=== PATIENT | male | born 1960 | race Caucasian/White ===

== ENCOUNTER 2018-12-16 14:27 | Emergency (ER) | payer BC ==
[2018-12-16 14:31] VITALS: BP 136/87; PULSE 65; TEMP 98; BMI 29.8
--- NOTE | 2018-12-16 14:32 | PDOC ---
Rapid Medical Evaluation Time Seen by Provider: 12/16/18 14:28 Medical Evaluation: Allergies Allergy/AdvReac Type Severity Reaction Status Date / Time No Known Allergies Allergy Verified 06/04/15 13:19 12/16/18 14:28 I have performed a brief in-person evaluation of this patient. The patient presents with a chief complaint of:R shoulder/neck pain Pertinent physical exam findings:Stable and well gloria, will defer rest of exam to ED provider I have ordered the following:nothing The patient will proceed to the ED for further evaluation. Discharge Disposition - Diagnosis Shoulder pain Qualifiers: Chronicity: acute Laterality: right Qualified Code(s): M25.511 - Pain in right shoulder - Referrals - Patient Instructions - Post Discharge Activity
[2018-12-16] MEDS ORDERED: KETOROLAC TROMETHAMINE 60 MG/2 ML VIAL IM ONE (15:04)
[2018-12-16] MEDS ORDERED: KETOROLAC TROMETHAMINE 60 MG/2 ML VIAL ONE (15:08)
--- NOTE | 2018-12-16 15:40 | PDOC ---
History of Present Illness - General Chief Complaint: Pain, Acute Stated Complaint: RT SHUOLDER PAIN Time Seen by Provider: 12/16/18 14:28 History Source: Patient Exam Limitations: Clinical Condition - History of Present Illness Initial Comments: 12/16/18 15:33 Patient with no significant past medical history present with complaint of sudden onset of right shoulder and right-sided neck pain after getting out of the shower yesterday. Patient also reported neck stiffness for same period. Denies trauma or injury to neck or shoulder. Reported increased pain with external rotation of neck. Timing/Duration: 24 hours Past History - Past Medical History Allergies/Adverse Reactions: Allergies Allergy/AdvReac Type Severity Reaction Status Date / Time No Known Allergies Allergy Verified 12/16/18 14:31 Home Medications: Ambulatory Orders Aspirin [ASA -] 81 mg PO DAILY 10/16/14 Brimonidine Tartrate [Alphagan P] 1 drop OD DAILY 10/16/14 Dorzolamide HCl/Timolol Maleat [Dorzolamide-Timolol Eye Drops] 1 drop OD DAILY 10/16/14 Hydrochlorothiazide [Hctz -] 25 mg PO DAILY 10/16/14 Lisinopril [Prinivil] 20 mg PO DAILY 10/16/14 Metoprolol Tartrate [Lopressor -] 25 mg PO DAILY 10/16/14 Moxifloxacin HCl [Vigamox 0.5% -] 1 drop OD DAILY 10/16/14 Prednisolone 1% Ophthalmic [Pred Forte 1% -] 0 ml OP ASDIR 10/16/14 Methocarbamol [Robaxin -] 500 mg PO BID PRN #14 tablet 12/16/18 Naproxen 500 mg PO BID PRN #20 tablet 12/16/18 COPD: No HTN: Yes Hypercholesterolemia: Yes - Immunization History Immunization Up to Date: Yes - Suicide/Smoking/Psychosocial Hx Smoking Status: No Smoking History: Never smoked Have you smoked in the past 12 months: No Number of Cigarettes Smoked Daily: 0 Hx Alcohol Use: No Drug/Substance Use Hx: No Substance Use Type: None Review of Systems - Review of Systems Able to Perform ROS?: Yes Is the patient limited Senegalese proficient: No Constitutional: No: Weakness HEENTM: No: Symptoms Reported, Tearing, Recent change in vision, Double Vision Respiratory: No: Symptoms reported Cardiac (ROS): No: Symptoms Reported ABD/GI: No: Symptoms Reported : Yes: See HPI Musculoskeletal: Yes: Symptoms Reported, See HPI, Joint Pain (right shoulder), Muscle Pain (right shoulder and neck), Neck Pain (right side of neck), Joint Stiffness (neck). No: Back Pain, Joint Swelling, Muscle Weakness Neurological: No: Numbness, Paresthesia, Tingling All Other Systems: Reviewed and Negative *Physical Exam - Vital Signs Last Vital Signs Temp Pulse Resp BP Pulse Ox 98.0 F 65 18 136/87 98 12/16/18 14:28 12/16/18 14:28 12/16/18 14:28 12/16/18 14:28 12/16/18 14:28 - Physical Exam Comments: 12/16/18 15:35 GENERAL: Well developed, well nourished. Awake and alert. No acute distress. CARDIOVASCULAR: Regular rate and rhythm. No murmurs, rubs, or gallops. PULMONARY: No evidence of respiratory distress. Lungs clear to auscultation bilaterally. No wheezing, rales or rhonchi. ABDOMINAL: Soft. Non-tender. Non-distended. No rebound or guarding. No organomegaly. Normoactive bowel sounds MUSCULOSKELETAL : Moderate tenderness over AC joint and posterior aspect of right shoulder. Moderate tenderness to by paracervical muscle C2-C5. Decreased range of motion of neck due to pain. No bony deformities . 5 out of 5 muscle strength to right shoulder. SKIN: Warm and dry. Normal capillary refill. No rashes. No jaundice. NEUROLOGICAL: Alert, awake, appropriate. No motor deficits in the lower extremities. Gait is normal without ataxia. PSYCHIATRIC: Cooperative. Good eye contact. Appropriate mood and affect. General Appearance: Yes: Nourished, Appropriately Dressed, Mild Distress Moderate Sedation - Procedure Monitoring Vital Signs: Procedure Monitoring Vital Signs Temperature 98.0 F 12/16/18 14:28 Pulse Rate 65 12/16/18 14:28 Respiratory Rate 18 12/16/18 14:28 Blood Pressure 136/87 12/16/18 14:28 O2 Sat by Pulse Oximetry (%) 98 12/16/18 14:28 ED Treatment Course - RADIOLOGY Radiology Studies Ordered: Category Date Time Status SHOULDER-RIGHT [RAD] Stat Radiology 12/16/18 15:04 Ordered SPINE-CERVICAL [RAD] Stat Radiology 12/16/18 15:04 Ordered - Medications Given in the ED: ED Medications Discontinued Medications Generic Name Dose Route Start Last Admin Trade Name Freq PRN Reason Stop Dose Admin Ketorolac Tromethamine 60 mg 12/16/18 15:04 12/16/18 15:11 Toradol Injection - IM 12/16/18 15:05 60 mg ONCE ONE Administration Medical Decision Making - Medical Decision Making 12/16/18 15:36 Patient with no significant past medical history present with complaint of 24- hour history of right shoulder and right-sided neck pain without trauma or injury. Symptoms likely shoulder strain and neck strain with neck spasm. Toradol 60 milligrams IM ordered for pain. X-ray of cervical spine and right shoulder ordered to rule out an acute pathology. Patient be discharged home on naproxen twice a day as needed for pain and Robaxin for muscle spasm with orthopedist follow-up if negative x-ray. *DC/Admit/Observation/Transfer Diagnosis at time of Disposition: Shoulder pain Qualifiers: Chronicity: acute Laterality: right Qualified Code(s): M25.511 - Pain in right shoulder Neck muscle strain Qualifiers: Encounter type: initial encounter Qualified Code(s): S16.1XXA - Strain of muscle, fascia and tendon at neck level, initial encounter - Discharge Dispostion Disposition: HOME Condition at time of disposition: Stable Decision to Admit order: No - Prescriptions Prescriptions: Methocarbamol [Robaxin -] 500 mg PO BID PRN #14 tablet PRN Reason: neck and shoulder spasm Naproxen 500 mg PO BID PRN #20 tablet PRN Reason: pain - Referrals Referrals: Duncan Shelton DO [Staff Physician] - - Patient Instructions Printed Discharge Instructions: Shoulder Sprain, DI for Shoulder Pain Additional Instructions: X-rays of shoulder was normal. 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 Take medications as prescribed as needed for pain. apply heat therapy 2-3 times/ day as needed for pain. Follow-up with referred orthopedics if symptoms persist more than 3 days - Post Discharge Activity
== END 2018-12-16 15:53 | disposition home or self-care (01) ==
LOC: JERFT 14:27
PROC: 3E0233Z Introduction of Anti-inflammatory into Muscle, Percutaneous Approach (ICD-10-PCS; principal; 2018-12-16)
DX: S16.1XXA Strain of muscle, fascia and tendon at neck level, initial encounter (principal); M25.511 Pain in right shoulder; M62.838 Other muscle spasm; X58.XXXA Exposure to other specified factors, initial encounter; Y93.E1 Activity, personal bathing and showering; Y92.012 Bathroom of single-family (private) house as the place of occurrence of the external cause; I10 Essential (primary) hypertension; E78.00 Pure hypercholesterolemia, unspecified
CPT/HCPCS: 72050-TC-FY; 73030-TC-RT-FY; 99281-25

== ENCOUNTER 2020-05-16 11:28 | Emergency (ER) | payer BC ==
--- NOTE | 2020-05-16 11:43 | PDOC ---
History of Present Illness - General Stated Complaint: CVA/TIA Time Seen by Provider: 05/16/20 11:42 - History of Present Illness Initial Comments: Joesph Acosta is a 60 y/o male with PMH significant for HTN and HLD presenting today with tingling in the left hand and left foot at 10am today. Reports that he woke up at 6am and was making breakfast when he felt lightheaded and felt the tingling in the left hand/foot. Lasted around 15min and resolved on its own. Pt took his BP after this and was in the 170s. Took his metoprolol and his statin right after. Subsequently called EMS. Denies chest pain/shortness of breath. Denies weakness. Denies headache. Denies LOC. Denies vertigo. No fever/chills. No back pain/abdominal pain. No leg swelling. Past History - Medical History Allergies/Adverse Reactions: Allergies Allergy/AdvReac Type Severity Reaction Status Date / Time No Known Allergies Allergy Verified 12/16/18 14:31 Home Medications: Ambulatory Orders Aspirin [ASA -] 81 mg PO DAILY 10/16/14 Brimonidine Tartrate [Alphagan P] 1 drop OD DAILY 10/16/14 Dorzolamide HCl/Timolol Maleat [Dorzolamide-Timolol Eye Drops] 1 drop OD DAILY 10/16/14 Hydrochlorothiazide [Hctz -] 25 mg PO DAILY 10/16/14 Lisinopril [Prinivil] 20 mg PO DAILY 10/16/14 Metoprolol Tartrate [Lopressor -] 25 mg PO DAILY 10/16/14 Moxifloxacin HCl [Vigamox 0.5% -] 1 drop OD DAILY 10/16/14 Prednisolone 1% Ophthalmic [Pred Forte 1% -] 0 ml OP ASDIR 10/16/14 Methocarbamol [Robaxin -] 500 mg PO BID PRN #14 tablet 12/16/18 Naproxen 500 mg PO BID PRN #20 tablet 12/16/18 Rosuvastatin [Crestor -] 20 mg PO DAILY 05/16/20 Sertraline HCl [Zoloft] 100 mg PO BID 05/16/20 COPD: No HTN: Yes Hypercholesterolemia: Yes - Immunization History Immunization Up to Date: Yes - Psycho-Social/Smoking History Smoking Status: No Smoking History: Never smoked Have you smoked in the past 12 months: No Number of Cigarettes Smoked Daily: 0 Review of Systems - Review of Systems Comments:: GENERAL/CONSTITUTIONAL: No fever or chills. No weakness._ HEAD, EYES, EARS, NOSE AND THROAT: No change in vision. No change in hearing. No sore throat._ CARDIOVASCULAR: No chest pain or shortness of breath_ RESPIRATORY: Denies cough, hemoptysis_ GASTROINTESTINAL: No nausea, vomiting, diarrhea or constipation._ GENITOURINARY: No dysuria, frequency, or change in urination._ MUSCULOSKELETAL: No joint or muscle swelling or pain. No neck or back pain._ SKIN: No rash_ NEUROLOGIC: Reports lightheadedness. No headache, vertigo, loss of consciousness, or change in strength/sensation. Reports tingling in the left hand and left foot (resolved). ENDOCRINE: No increased thirst. No abnormal weight change_ HEMATOLOGIC/LYMPHATIC: No anemia, easy bleeding, or history of blood clots._ ALLERGIC/IMMUNOLOGIC: No hives or skin allergy._ *Physical Exam - Physical Exam GENERAL: Awake, alert, and oriented to person/place/time, in no acute distress_ HEAD: No signs of trauma, normocephalic, atraumatic _ EYES: Artificial lens right eye, EOMI, sclera anicteric, conjunctiva clear_ ENT: Hearing grossly normal, nares patent, oropharynx clear without exudates. No uvular deviation. Moist mucosa_ NECK: Normal ROM, supple, no lymphadenopathy, JVD, or masses_ LUNGS: No distress, speaks in full sentences, clear to auscultation bilaterally _ HEART: Regular rate and rhythm, normal S1 and S2, no murmurs appreciated, peripheral pulses normal and equal bilaterally._ ABDOMEN: Soft, nontender, normoactive bowel sounds. No guarding, no rebound. No masses_ EXTREMITIES: Normal inspection, Normal range of motion, no edema. No clubbing or cyanosis_ NEUROLOGICAL: CN II-XII tested and intact. Sensation intact to sharp/dull differentiation in all extremities. Motor: Normal tone and bulk. No abnormal movements appreciated. No pronator drift. Strength tested and 5/5 in bilateral wrist flexion/extension, elbow flexion/extension, shoulder abduction, straight leg raise, knee flexion/extension, ankle dorsiflexion/plantarflexion. Patient ambulates with a steady gait. Coordination: Finger to nose and heel to chavez testing intact bilaterally. SKIN: Warm, Dry, normal turgor, no rashes or lesions noted_ NIH Stroke Scale - Last Known Well Date/Time & Onset Date Last Known Well: 05/16/20 Time Last Known Well: 10:00 - Initial Evaluation Level of consciousness: Alert Ask patient the month and their age: Answers both correctly Ask patient to open & close eyes; make fist and let go: Obeys both correctly Best gaze (horizontal eye movement): Normal Visual field testing: No visual field loss Facial paresis (Show teeth/raise eyebrows/close eyes tight): Normal symmetrical movement Motor Function: Left Arm: Normal Motor Function: Right Arm: Normal (extends arm 90 (or 45) degrees for 10 seconds without drift Motor Function: Left Leg: Normal (extends leg 30 degrees for 5 seconds without drift) Motor Function: Right Leg: Normal (extends leg 30 degrees for 5 seconds without drift) Limb Ataxia: No ataxia Sensory(Use pinprick test arms,legs,trunk,face/side to side): Normal Best language (Describe picture, name items, read sentences): No Aphasia Dysarthria (read several words): Normal articulation Extinction and Inattention: No abnormality - Total Score NIH Stroke Scale Score: 0 tPA Exclusion Checklist 0-3hr - Time Elapsed Date last known well: 05/16/20 Time last known well: 10:00 Elaspsed time: Day(s) and 10 Hour(s) and 7 Minutes - Thrombolytic Therapy Candidate Is the patient eligible for Thrombolytic Therapy?: Yes - Exclusion Criteria 0-3hr SBP greater than 185 or DBP greater than 110mmHg despite tx: No Recent IC/spinal surgery,head trauma or stroke w/in last 3mo: No Hx of previous IC hemorrhage, IC neoplasm, AVM or aneurysm: No Active internal bleeding: No Blding diathesis(low plt ct, inc PTT,INR>1.7 or use of NOAC): No Symptoms suggest subarachnoid hemorrhage: No CT demonstrates multilobar infarct(>1/3 cerebral hemiphere): No Arterial puncture at noncompressible site in previous 7 days: No Blood glucose concentration less than 50mg/dL (2.7mmol/L): No - Relative Exclusion Criteria 0-3h Care team unable to determine eligibility: No IV/IA thrombolysis/thrombectomy @ another hosp prior arrival: No Life expectancy <1yr/severe co-morbid illness/[employer] on admit: No : No Patient/family refused: No Stroke severity too mild (non-disabling): Yes Recent acute NV (w/in previous 3 months): No Seizure at onset with postictal residual neuro impairments: No Major surgery or serious trauma w/in previous 14 days: No Recent GI or hemorrhage (w/in previous 21 days): No - Ineligibility reason(s) Reasons No tPA given: See reason(s) noted above (symptoms resolved) Critical Care Time/MDM Note - Medical Decision Making Note: 05/16/20 11:45 60M hx of HTN HLD presenting today with tingling in the left hand and left foot at 10am this morning lasting for around 15 min before resolution. No focal neuro findings on exam in the ED. Code stroke activated as the pt is within the 4 hour window. -CT head stroke -labs -coags -urine -lipids 05/16/20 11:47 Age ? 60 years > 1 = Yes BP ? 140/90 mmHg > 1 = Yes Clinical features of the TIA > 0 = Other symptoms Duration of symptoms > 1 = 10-59 minutes History of diabetes > 0 = No ABCD Score: 3 05/16/20 11:50 CT head negative for acute intracranial pathology. 05/16/20 12:43 EKG shows 67 bpm, NSR, no axis deviation, CA 170, QTc 412, no ST elevation/depression. No significant interval change compared to EKG in 2015. 05/16/20 13:47 The patient has requested to leave the ED against medical advice. The patient reason(s) for leaving include, but are not limited to, the following: does not want to stay inpatient and feels that his symptoms have resolved. I believe this patient is of sound mind and competent to refuse medical care. The patient is responding and asking questions appropriately. The patient is oriented to person, place and time. The patient is not psychotic, delusional, suicidal, homicidal or hallucinating. The patient demonstrates a normal mental capacity to make decisions regarding their healthcare. The patient is clinically sober and does not appear to be under the influence of any illicit drugs at this time. The patient has been advised of the risks, in layman terms, of leaving AMA which include, but are not limited to , coma, permanent disability, loss of cur rent lifestyle, delay in diagnosis. Alternatives have been offered - the patient remains steadfast in their wish to leave. The patient has been advised that should they change their mind they are welcome to return to this hospital, or any other, at any time. The patient understands that in no way does an AMA discharge mean that I do not want them to have the best medical care available. To this end, I have provided appropriate prescriptions, referrals, and discharge instructions. The patient did sign AMA paperwork. The above discussion was witnessed by another member of staff. Discharge - Discharge Information Problems reviewed: Yes Clinical Impression/Diagnosis: Transient ischemic attack Condition: Unchanged/Unknown Disposition: AGAINST MEDICAL ADVICE - Admission No - Follow up/Referral Referrals: Neil Blankenship MD [Primary Care Provider] - Alton Foster MD [Staff Physician] - - Patient Discharge Instructions Patient Printed Discharge Instructions: DI for Transient Ischemic Attack Additional Instructions: Please make a follow up appointment with your primary care doctor. If you experience any new, worsening, or concerning symptoms, including numbness, tingling, vision changes, slurred speech, weakness, or any other concerns, please return to the emergency department. - Post Discharge Activity
--- NOTE | 2020-05-16 11:44 | PDOC ---
Attending Attestation - Resident Resident Name: ConnorJames - ED Attending Attestation I have performed the following: I have examined & evaluated the patient, The case was reviewed & discussed with the resident, I agree w/resident's findings & plan, Exceptions are as noted - HPI HPI: 05/16/20 12:03 60y M hx of htn, hl, presents with about 15 min of L leg and hand tingling and was feeling lightheaded around 9:45am when he was walking to the family room. He endorsed feeling alittle out of breath and maybe some chest pressure. Patient states that after this happened he took his vital signs notice his blood pressure was a little bit elevated, he took baby aspirin and metoprolol and and the symptoms resolved. Upon arrival of EMS the patient's symptoms had resolved and per EMS had a normal neurologic exam. The patient denies any associated symptoms including headache, vision changes, dysatrhia, focal weakness/numbness, neck pain, abdominal pain, n/v, diaphoresis, worthy, back pain. No recent fever, chills, cough, diarrhea, melena, BPR, dysuria. Pt has never had these sypmtoms in the past. Upon arrival, code morris was activated due to his complaint of lateralizing neuro sypmtoms. - Physicial Exam PE: 05/16/20 12:37 GENERAL: The patient is awake, alert, and fully oriented, Nontoxic - in no acute distress. HEAD: Normocephalic, atraumatic. EYES: extraocular movements intact, sclera anicteric, conjunctiva clear. ENT: Normal voice, Moist mucous membranes. NECK: Normal range of motion, supple LUNGS: Breath sounds equal, clear to auscultation bilaterally. No wheezes, no rhonchi, no rales. HEART: Regular rate and rhythm, normal S1 and S2 without murmur, rub or gallop. ABDOMEN: Soft, nontender, No guarding, no rebound. No CVA tenderness EXTREMITIES: Normal range of motion, no edema. NEUROLOGICAL: No facial assymetry, Normal speech, moving all 4 extremities spontnaeously and symmetrically, normal finger to nose, normal rapid laternating movements, normal sensation in face/arms/legs. PSYCH: Normal mood, normal affect. SKIN: Warm, Dry, normal turgor, - Medical Decision Making 05/16/20 12:38 ddx for pts sx includes possible tia, anemia, metabolic derangement, acs, arrthmia will ck ct head, labs, ekg pt placed on leak inspector willr easess, - anticipate observation./admission for further evaluation 05/16/20 13:22 pt lab resuilts reviewed pt states she would like to leave due to concern for COVID patients, pt was reassured that there are minimal cases currently and all measures will be taken to minimize risks, however pt still wants to leave will sign pt out AMA discussed risks of leaving prior to complete workup/evaluation by consults pt states he understands the risks of delayed/missed dx Heart Score/ECG Review - ECG Impressions Comment:: 05/16/20 13:32 Twelve-lead EKG was performed and reviewed by me. There is normal sinus rhythm with a normal rate. rate of 67 The axis is normal. The intervals are normal. There is normal R wave progression There are no ST or T wave abnormalities. Impression: Normal twelve-lead EKG Discharge - Discharge Information Problems reviewed: Yes Clinical Impression/Diagnosis: Transient ischemic attack Condition: Unchanged/Unknown Disposition: AGAINST MEDICAL ADVICE - Follow up/Referral Referrals: Neil Blankenship MD [Primary Care Provider] - Alton Foster MD [Staff Physician] - - Patient Discharge Instructions Patient Printed Discharge Instructions: DI for Transient Ischemic Attack Additional Instructions: Please make a follow up appointment with your primary care doctor. If you experience any new, worsening, or concerning symptoms, including numbness, tingling, vision changes, slurred speech, weakness, or any other concerns, please return to the emergency department. - Post Discharge Activity
[2020-05-16] MEDS ORDERED: SODIUM CHLORIDE 1,000 ML IV SCH (11:45)
[2020-05-16 12:02] VITALS: BMI 32.5
[2020-05-16 12:12] LABS: BASO % 0.3 % (0-2.0); EOS % 0.1 % (0-4.5); HEMATOCRIT 36.8 % (35.4-49); HEMOGLOBIN 12.5 GM/dL (11.7-16.9); LYMPH % 25.9 % (8-40); MCH 31.1 pg (25.7-33.7); MCHC 34.1 g/dl (32.0-35.9); MEAN CELL VOLUME 91.3 fl (80-96); MONO % 9.6 % (3.8-10.2); NEUT % 64.1 % (42.8-82.8); PLATELET COUNT 218 K/MM3 (134-434); RBC 4.03 M/mm3 (4.00-5.60); RDW 13.4 % (11.9-15.9); WHITE BLOOD COUNT 6.8 K/mm3 (4.0-10.0)
[2020-05-16 12:20] LABS: INR 1.05 (0.83-1.09); PROTHROMBIN TIME (PATIENT) 12.4 SEC (9.7-13.0)
[2020-05-16 12:46] LABS: CHOLESTEROL 146 mg/dL (50-200); HDL CHOLESTEROL 35 mg/dL (40-60); LDL CHOLESTEROL (ONLY SJRH) 89 mg/dL (5-100); TRIGLYCERIDES 156 mg/dL (0-150)
[2020-05-16 12:49] LABS: ALBUMIN 3.7 g/dl (3.4-5.0); ALK PHOS 65 U/L (45-117); ANION GAP 8 MMOL/L (8-16); BILIRUBIN,TOTAL 0.4 mg/dL (0.2-1); BLOOD UREA NITROGEN 17.5 mg/dL (7-18); CALCIUM 8.9 mg/dL (8.5-10.1); CHLORIDE 100 mmol/L (98-107); CO2 25 mmol/L (21-32); CREATININE 1.4 mg/dL (0.55-1.3); GLUCOSE,RANDOM 109 mg/dL (74-106); SGOT/AST 28 U/L (15-37); SGPT/ALT 56 U/L (13-61); SODIUM 132 mmol/L (136-145); TOT PROT 7.3 g/dl (6.4-8.2)
[2020-05-16 13:46] VITALS: BP 113/78; PULSE 64; TEMP 98.3
--- NOTE | 2020-05-17 09:22 | EKG ---
Test Reason : Blood Pressure : / mmHG Vent. Rate : 067 BPM Atrial Rate : 067 BPM P-R Int : 170 ms QRS Dur : 078 ms QT Int : 390 ms P-R-T Axes : 031 001 027 degrees QTc Int : 412 ms NORMAL SINUS RHYTHM NORMAL ECG WHEN COMPARED WITH ECG OF 04-JUN-2015 13:46, NO SIGNIFICANT CHANGE WAS FOUND Confirmed by MD RUBEN, GEORGETTE ([id number]) on 05/17/2020 9:21:57 AM Referred By: Confirmed By:GEORGETTE MIRANDA MD
== END 2020-05-16 13:40 | disposition left against medical advice (07) ==
LOC: JER 11:28
DX: G45.9 Transient cerebral ischemic attack, unspecified (principal)
CPT/HCPCS: 36415; 70450-TC; 71045-TC-FY; 80053; 80061; 82550; 83721; 84484; 85025; 85610; 85730; 86850; 86900; 86901; 93005; 93010; 99285-25

== ENCOUNTER 2020-09-04 12:51 | Emergency (ER) | payer BC ==
[2020-09-04 13:34] VITALS: BP 115/76; PULSE 74; TEMP 98.1; BMI 30.7
== END 2020-09-04 13:39 | disposition left against medical advice (07) ==
LOC: JER 12:51
DX: R42 Dizziness and giddiness (principal)
CPT/HCPCS: 99283-25

== ENCOUNTER 2021-04-18 02:06 | Emergency (ER) | payer BC ==
[2021-04-18 02:18] VITALS: BP 116/83; PULSE 63; TEMP 98; BMI 30.7
[2021-04-18] MEDS ORDERED: KETOROLAC TROMETHAMINE 60 MG/2 ML VIAL IM ONE (02:38)
[2021-04-18] MEDS ORDERED: KETOROLAC TROMETHAMINE 60 MG/2 ML VIAL ONE (02:39)
== END 2021-04-18 02:45 | disposition home or self-care (01) ==
LOC: FER 02:06
PROC: 3E0233Z Introduction of Anti-inflammatory into Muscle, Percutaneous Approach (ICD-10-PCS; principal; 2021-04-18)
DX: R51.9 Headache, unspecified (principal)
CPT/HCPCS: 70450-TC; 99284-25

== ENCOUNTER 2021-06-15 12:25 | Emergency (ER) | payer BC ==
[2021-06-15 12:41] VITALS: BMI 29.0
[2021-06-15] MEDS ORDERED: CASIRIVIMAB/IMDEVIMAB 10 ML in SODIUM CHLORIDE 100 ML IVPB ONE (13:26)
[2021-06-15 14:10] LABS: BASO % 0.5 % (0-2.0); EOS % 0.2 % (0-4.5); HEMOGLOBIN 13.2 GM/dL (11.7-16.9); LYMPH % 34.2 % (8-40); MCH 31.3 pg (25.7-33.7); MCHC 34.8 g/dl (32.0-35.9); MEAN CELL VOLUME 90.1 fl (80-96); MEAN PLT VOLUME 8.8 fl (7.5-11.1); MONO % 10.9 % (3.8-10.2); NEUT % 54.2 % (42.8-82.8); PLATELET COUNT 189 10^3/uL (134-434); RBC 4.22 M/mm3 (4.00-5.60); RDW 13.6 % (11.9-15.9)
[2021-06-15 14:38] LABS: BLOOD UREA NITROGEN 22.3 mg/dL (7-18); CALCIUM 8.5 mg/dL (8.5-10.1)
[2021-06-15 14:43] LABS: CREATININE 1.2 mg/dL (0.55-1.3)
[2021-06-15 15:04] VITALS: TEMP 98.4
[2021-06-15 16:52] VITALS: BP 131/78; PULSE 67
== END 2021-06-15 16:52 | disposition home or self-care (01) ==
LOC: JER 12:25
DX: U07.1 COVID-19 (principal)
CPT/HCPCS: 36415; 80048; 85025; 99284-25; M0240; Q0240

== ENCOUNTER 2021-08-03 11:33 | Emergency (ER) | payer BC ==
[2021-08-03 12:12] VITALS: BMI 30.7
[2021-08-03 14:53] LABS: BASO % 0.7 % (0-2.0); EOS % 0.3 % (0-4.5); HEMATOCRIT 39.2 % (35.4-49); HEMOGLOBIN 13.6 GM/dL (11.7-16.9); LYMPH % 30.3 % (8-40); MCH 31.9 pg (25.7-33.7); MCHC 34.6 g/dl (32.0-35.9); MEAN CELL VOLUME 92.1 fl (80-96); MEAN PLT VOLUME 9.6 fl (7.5-11.1); MONO % 8.5 % (3.8-10.2); NEUT % 60.2 % (42.8-82.8); PLATELET COUNT 234 10^3/uL (134-434); RBC 4.26 M/mm3 (4.00-5.60); RDW 13.5 % (11.9-15.9); WHITE BLOOD COUNT 9.8 K/mm3 (4.0-10.0)
[2021-08-03 15:14] LABS: CHLORIDE 103 mmol/L (98-107); SODIUM 136 mmol/L (136-145)
[2021-08-03 15:16] LABS: ALBUMIN 3.7 g/dl (3.4-5.0); ANION GAP 11 MMOL/L (8-16); BLOOD UREA NITROGEN 18.8 mg/dL (7-18); CALCIUM 8.6 mg/dL (8.5-10.1); CO2 22 mmol/L (21-32); GLUCOSE,RANDOM 87 mg/dL (74-106)
[2021-08-03 15:19] LABS: CREATININE 1.2 mg/dL (0.55-1.3); SGOT/AST 24 U/L (15-37); SGPT/ALT 40 U/L (13-61)
[2021-08-03 15:21] LABS: BILIRUBIN,TOTAL 0.5 mg/dL (0.2-1); TOT PROT 7.7 g/dl (6.4-8.2)
[2021-08-03 15:22] LABS: ALK PHOS 72 U/L (45-117)
[2021-08-03 16:35] VITALS: BP 124/87; TEMP 98.7
[2021-08-03 18:14] VITALS: PULSE 75
== END 2021-08-03 17:45 | disposition home or self-care (01) ==
LOC: JER 11:33
DX: R41.0 Disorientation, unspecified (principal); F41.9 Anxiety disorder, unspecified
CPT/HCPCS: 36415; 70450-TC; 80053; 82550; 84484; 85025; 93005; 93010; 99285-25

== ENCOUNTER 2021-12-29 11:41 | Emergency (ER) | payer BC ==
[2021-12-29 11:47] VITALS: BP 128/75; PULSE 77; TEMP 100.6; BMI 30.7
[2021-12-29] MEDS ORDERED: ACETAMINOPHEN 325 MG TABLET (FP) PO ONE (12:28)
[2021-12-29] MEDS ORDERED: ACETAMINOPHEN 325 MG TABLET (FP) ONE (13:04)
[2021-12-29 13:08] LABS: EPI CELLS 2 /uL (0-25.1); HYALINE CASTS 1 /uL (0-3.1); URINE APPEARANCE CLEAR; URINE BACTERIA 1 /uL (0-1359); URINE BILIRUBIN NEGATIVE (NEGATIVE); URINE COLOR YELLOW; URINE GLUCOSE (UA) NEGATIVE (NEGATIVE); URINE KETONE NEGATIVE (NEGATIVE); URINE LEUK ESTERASE NEGATIVE (NEGATIVE); URINE NITRITE NEGATIVE (NEGATIVE); URINE PROTEIN 1+ (NEGATIVE); URINE RBC 28 /uL (0-23.9); URINE UROBILINOGEN 0.2 mg/dL (0.2-1.0); URINE WBC 8 /uL (0-25.8)
[2021-12-29 14:06] LABS: HEMATOCRIT 38.1 % (35.4-49); HEMOGLOBIN 12.8 GM/dL (11.7-16.9); MCH 30.7 pg (25.7-33.7); MCHC 33.7 g/dl (32.0-35.9); MEAN CELL VOLUME 91.2 fl (80-96); MEAN PLT VOLUME 9.8 fl (7.5-11.1); PLATELET COUNT 201 10^3/uL (134-434); RBC 4.18 M/mm3 (4.00-5.60); RDW 13.3 % (11.9-15.9); WHITE BLOOD COUNT 11.9 K/mm3 (4.0-10.0)
[2021-12-29 14:24] LABS: CALCIUM 8.9 mg/dL (8.5-10.1)
[2021-12-29 14:25] LABS: BLOOD UREA NITROGEN 25.5 mg/dL (7-18)
[2021-12-29 14:27] LABS: CREATININE 1.4 mg/dL (0.55-1.3)
[2021-12-29 14:29] LABS: BILIRUBIN,TOTAL 0.7 mg/dL (0.2-1); TOT PROT 7.9 g/dl (6.4-8.2)
[2021-12-29] MEDS ORDERED: IBUPROFEN 400 MG TABLET (FP) PO ONE ×2 (15:58→16:04)
[2021-12-29] MEDS ORDERED: SODIUM CHLORIDE 1,000 ML IV STA (15:58)
[2021-12-29] MEDS ORDERED: metroNIDAZOLE 250 MG TABLET PO ONE (16:53)
[2021-12-29] MEDS ORDERED: metroNIDAZOLE 250 MG TABLET ONE (17:26)
== END 2021-12-29 17:38 | disposition home or self-care (01) ==
LOC: JER 11:41
PROC: 3E0337Z Introduction of Electrolytic and Water Balance Substance into Peripheral Vein, Percutaneous Approach (ICD-10-PCS; principal; 2021-12-29)
DX: K57.32 Diverticulitis of large intestine without perforation or abscess without bleeding (principal)
CPT/HCPCS: 36415; 74177-TC; 80053; 81003; 85027; 87040; 87086; 99285-25; Q9967

== ENCOUNTER 2022-05-08 19:10 | Emergency (ER) | payer BC ==
[2022-05-08] MEDS ORDERED: KETOROLAC TROMETHAMINE 60 MG/2 ML VIAL IM ONE (19:30)
[2022-05-08] MEDS ORDERED: KETOROLAC TROMETHAMINE 60 MG/2 ML VIAL ONE (19:30)
[2022-05-08 19:33] VITALS: BP 133/81; PULSE 84; TEMP 99.8; BMI 29.0
== END 2022-05-08 19:44 | disposition home or self-care (01) ==
LOC: FER 19:10
PROC: 3E023GC Introduction of Other Therapeutic Substance into Muscle, Percutaneous Approach (ICD-10-PCS; principal; 2022-05-08)
DX: U07.1 COVID-19 (principal); J02.9 Acute pharyngitis, unspecified
CPT/HCPCS: 99284-25

== ENCOUNTER 2023-12-12 13:22 | Emergency (ER) | payer BC ==
[2023-12-12 13:46] VITALS: RESP 19
[2023-12-12 13:57] VITALS: BMI 28.0
[2023-12-12 15:19] LABS: BASO % 0.5 % (0-2.0); EOS % 0.1 % (0-4.5); HEMATOCRIT 34.9 % (35.4-49); HEMOGLOBIN 12.1 GM/dL (11.7-16.9); LYMPH % 23.5 % (8-40); MCH 30.9 pg (25.7-33.7); MCHC 34.8 g/dl (32.0-35.9); MEAN PLT VOLUME 8.6 fl (7.5-11.1); MONO % 7.3 % (3.8-10.2); NEUT % 68.6 % (42.8-82.8); PLATELET COUNT 421 10^3/uL (134-434); RBC 3.92 M/mm3 (4.00-5.60); RDW 13.7 % (11.9-15.9); WHITE BLOOD COUNT 8.1 K/mm3 (4.0-10.0)
[2023-12-12 15:23] LABS: VENOUS BASE EXCESS -2.8 mmol/L (-2-2); VENOUS O2 SATURATION 75.2 % (70-80); VENOUS PCO2 38.1 mmHg (38-52); VENOUS PH 7.375 (7.310-7.410)
[2023-12-12 15:32] LABS: INR 1.11 (0.83-1.09); PROTHROMBIN TIME (PATIENT) 12.9 SEC (9.7-13.0)
[2023-12-12 15:35] LABS: ACTIVATED PTT 31.2 SECONDS (25.2-36.5)
[2023-12-12 15:46] LABS: POTASSIUM 4.5 mmol/L (3.5-5.1)
[2023-12-12 15:49] LABS: CALCIUM 9.4 mg/dL (8.5-10.1)
[2023-12-12 15:50] LABS: ALBUMIN 3.6 g/dl (3.4-5.0)
[2023-12-12 15:52] LABS: CREATININE 1.4 mg/dL (0.55-1.3)
[2023-12-12 15:54] LABS: BILIRUBIN,TOTAL 0.5 mg/dL (0.2-1)
[2023-12-12 15:57] LABS: N-TERMINAL BNP 131.5 pg/ml (5-125)
[2023-12-12 16:21] VITALS: BP 117/69; PULSE 78; TEMP 98.1
== END 2023-12-12 16:31 | disposition home or self-care (01) ==
LOC: JER 13:22
DX: R06.02 Shortness of breath (principal); R42 Dizziness and giddiness; Z20.822 Contact with and (suspected) exposure to COVID-19
CPT/HCPCS: 0241U-QW; 36415; 71046-TC-FY; 80053; 82803; 83880; 84484; 85025; 85610; 85730; 86850; 86900; 86901; 93005; 93010; 99285-25

== ENCOUNTER 2024-03-29 15:56 | Emergency (ER) | payer BC ==
[2024-03-29 16:10] VITALS: RESP 18; TEMP 99.3; BMI 62.2
[2024-03-29 16:42] VITALS: BP 134/85; PULSE 97
[2024-03-29 17:34] LABS: BASO % 0.3 % (0-2.0); HEMATOCRIT 38.4 % (35.4-49); LYMPH % 16.9 % (8-40); MCH 30.4 pg (25.7-33.7); MCHC 33.9 g/dl (32.0-35.9); MEAN CELL VOLUME 89.5 fl (80-96); MEAN PLT VOLUME 9.7 fl (7.5-11.1); NEUT % 76.8 % (42.8-82.8); PLATELET COUNT 192 10^3/uL (134-434); RBC 4.29 M/mm3 (4.00-5.60); RDW 13.6 % (11.9-15.9); WHITE BLOOD COUNT 8.1 K/mm3 (4.0-10.0)
[2024-03-29 17:41] LABS: INR 1.03 (0.83-1.09); PROTHROMBIN TIME (PATIENT) 11.8 SEC (9.7-13.0)
[2024-03-29 17:52] LABS: POTASSIUM 3.9 mmol/L (3.5-5.1)
[2024-03-29 17:53] LABS: CALCIUM 9.1 mg/dL (8.5-10.1)
[2024-03-29 17:54] LABS: ALBUMIN 3.9 g/dl (3.4-5.0); BLOOD UREA NITROGEN 27.2 mg/dL (7-18)
[2024-03-29 17:57] LABS: CREATININE 1.5 mg/dL (0.55-1.3)
[2024-03-29 17:59] LABS: BILIRUBIN,TOTAL 0.4 mg/dL (0.2-1); TOT PROT 7.8 g/dl (6.4-8.2)
== END 2024-03-29 19:00 | disposition left against medical advice (07) ==
LOC: JER 15:56
DX: R07.2 Precordial pain (principal); R06.02 Shortness of breath
CPT/HCPCS: 36415; 71046-TC-FY; 80053; 84484; 85025; 85379; 85610; 85730; 93005; 93010; 99285-25

== ENCOUNTER 2024-04-08 17:48 | Emergency (ER) | payer BC ==
[2024-04-08 18:04] VITALS: BP 130/85; PULSE 72; RESP 20; TEMP 98.2; BMI 29.8
[2024-04-08] MEDS ORDERED: ACETAMINOPHEN INJECTION 100 ML IVPB ONE (19:04)
[2024-04-08 19:11] LABS: HEMATOCRIT 38.2 % (35.4-49); HEMOGLOBIN 12.4 G/dL (11.7-16.9); MCH 29.8 pg (25.7-33.7); MCHC 32.4 g/dl (32.0-35.9); MEAN CELL VOLUME 92.1 fl (80-96); MEAN PLT VOLUME 9.6 fl (7.5-11.1); PLATELET COUNT 213.6 10^3/uL (134-434); RBC 4.15 10^6/uL (4.00-5.60); RDW 13.4 % (11.9-15.9); WHITE BLOOD COUNT 8.2 10^3/uL (4.0-10.8)
[2024-04-08] MEDS: ACETAMINOPHEN 1000 MG/100 ML BAG IVPB ONE (19:11)
[2024-04-08 19:27] LABS: ALBUMIN 4.2 g/dl (3.4-5.0); BILIRUBIN,TOTAL 0.5 mg/dl (0.2-1); CALCIUM 8.9 mg/dl (8.5-10.1); CREATININE 1.9 mg/dl (0.6-1.3); POTASSIUM 3.9 mmol/L (3.5-5.1); TOT PROT 6.9 g/dl (6.4-8.2)
[2024-04-08 19:31] LABS: URINE SPERM PRESENT
[2024-04-08] MEDS ORDERED: AMOX TR/POT CLAV 875MG/125MG TABLETS (FP) ONE (21:14)
[2024-04-08] MEDS: AMOX TR/POT CLAV 875MG/125MG TABLETS (FP) PO ONE (21:15)
== END 2024-04-08 21:20 | disposition home or self-care (01) ==
LOC: FER 17:48
PROC: 3E033NZ Introduction of Analgesics, Hypnotics, Sedatives into Peripheral Vein, Percutaneous Approach (ICD-10-PCS; principal; 2024-04-08)
DX: K57.32 Diverticulitis of large intestine without perforation or abscess without bleeding (principal); R10.32 Left lower quadrant pain; R19.7 Diarrhea, unspecified
CPT/HCPCS: 36415; 74176-TC; 80053; 81003; 81015; 85027; 87086; 99284-25; J0131

== ENCOUNTER 2024-09-30 08:03 | Observation (INO) | payer BC ==
[2024-09-30 08:56] VITALS: TEMP 98.4; BMI 34.8
[2024-09-30 09:40] LABS: BASO % 0.6 % (0-2.0); EOS % 0.1 % (0-4.5); HEMOGLOBIN 12.9 GM/dL (11.7-16.9); LYMPH % 24.3 % (8-40); MCH 30.6 pg (25.7-33.7); MEAN PLT VOLUME 9.3 fl (7.5-11.1); MONO % 9.6 % (3.8-10.2); NEUT % 65.4 % (42.8-82.8); PLATELET COUNT 199 10^3/uL (134-434); RBC 4.22 M/mm3 (4.00-5.60); RDW 13.8 % (11.9-15.9); WHITE BLOOD COUNT 8.1 K/mm3 (4.0-10.0)
[2024-09-30 09:44] LABS: PROTHROMBIN TIME (PATIENT) 11.5 SEC (9.7-13.0)
[2024-09-30 09:47] LABS: ACTIVATED PTT 31.4 SECONDS (25.2-36.5)
[2024-09-30 09:56] LABS: CHLORIDE 103 mmol/L (98-107); SODIUM 136 mmol/L (136-145)
[2024-09-30 09:57] LABS: CALCIUM 9.3 mg/dL (8.5-10.1)
[2024-09-30 09:58] LABS: ALBUMIN 3.7 g/dl (3.4-5.0); ANION GAP 9 mmol/L (4-13); CO2 24 mmol/L (21-32)
[2024-09-30 09:59] LABS: BLOOD UREA NITROGEN 24.1 mg/dL (7-18); GLUCOSE,RANDOM 102 mg/dL (74-106)
[2024-09-30 10:01] LABS: CREATININE 1.5 mg/dL (0.55-1.3); SGOT/AST 11 U/L (15-37); SGPT/ALT 29 U/L (13-61)
[2024-09-30 10:02] LABS: CHOLESTEROL 166 mg/dL (50-200)
[2024-09-30 10:03] LABS: TOT PROT 7.6 g/dl (6.4-8.2)
[2024-09-30 10:04] LABS: BILIRUBIN,TOTAL 0.4 mg/dL (0.2-1); LDL CHOLESTEROL (ONLY SJRH) 96 mg/dL (5-100)
[2024-09-30 10:05] LABS: ALK PHOS 74 U/L (45-117); HDL CHOLESTEROL 44 mg/dL (40-60)
[2024-09-30] MEDS: LACTATED RINGERS SOLUTION 1000 ML INFUS.BAG IV ONE (10:51)
[2024-09-30 12:23] VITALS: RESP 20
[2024-09-30 12:46] LABS: EPI CELLS 2 /uL (0-25.1); HYALINE CASTS 0 /uL (0-3.1); URINE APPEARANCE CLEAR; URINE BACTERIA 20 /uL (0-1359); URINE BILIRUBIN NEGATIVE (NEGATIVE); URINE COLOR YELLOW; URINE GLUCOSE (UA) NEGATIVE (NEGATIVE); URINE KETONE NEGATIVE (NEGATIVE); URINE LEUK ESTERASE NEGATIVE (NEGATIVE); URINE NITRITE NEGATIVE (NEGATIVE); URINE PROTEIN NEGATIVE (NEGATIVE); URINE RBC 12 /uL (0-23.9); URINE UROBILINOGEN 0.2 mg/dL (0.2-1.0); URINE WBC 10 /uL (0-25.8)
[2024-09-30 14:21] VITALS: BP 133/83; PULSE 67
== END 2024-09-30 14:25 | disposition left against medical advice (07) ==
LOC: JER 08:03 → JERBED 12:40
PROC: 3E0337Z Introduction of Electrolytic and Water Balance Substance into Peripheral Vein, Percutaneous Approach (ICD-10-PCS; principal; 2024-09-30)
DX: R29.818 Other symptoms and signs involving the nervous system (principal); R29.810 Facial weakness; R20.0 Anesthesia of skin; R20.2 Paresthesia of skin; I12.9 Hypertensive chronic kidney disease with stage 1 through stage 4 chronic kidney disease, or unspecified chronic kidney disease; N18.9 Chronic kidney disease, unspecified; E78.5 Hyperlipidemia, unspecified; N40.0 Benign prostatic hyperplasia without lower urinary tract symptoms; K21.9 Gastro-esophageal reflux disease without esophagitis
CPT/HCPCS: 36415; 70450-TC; 80053; 80061; 81003; 82550; 82962; 83036; 84484; 85025; 85610; 85730; 86850; 86900; 86901; 87086; 93005; 93010; 99285-25; G0378